=== PATIENT | female | born 1960 | race Caucasian/White ===

== ENCOUNTER → 2024-04-16 06:16 | Day surgery (SDC) | payer OTHER, SELFPAY | LOC: GI 06:16 | PROVIDERS: ATTENDING PHYSICIAN Internal Medicine | DX: Z12.11 Encounter for screening for malignant neoplasm of colon (principal); R19.5 Other fecal abnormalities; D12.3 Benign neoplasm of transverse colon; K62.1 Rectal polyp; K63.5 Polyp of colon | CPT/HCPCS: 45385; 45380; 88305 ==

== ENCOUNTER 2024-09-28 21:06 | Emergency (ER) | payer OTHER, SELFPAY ==
[2024-09-28 21:17] VITALS: BP 160/84
[2024-09-29 01:15] VITALS: BP 158/90
--- NOTE | 2024-09-29 02:40 | ED.GENMED ---
History of Present Illness
General
Chief Complaint: Musculo-Skeletal Complaint
Source: patient
Time Seen by Provider: 09/29/24 02:36
Nursing documentation reviewed up to this point in time: agreed with
History of Present Illness
History of Present Illness:
64-year-old female presents to the emergency department with left ankle swelling. She states that she fell down 2 steps. Denies head injury or loss of consciousness. She has been able to ambulate on it. Patient denies any pain in the knee or
hip. Denies medial pain. Pain only on the lateral aspect of her foot.
Past History
Past History
ED Past Medical History: None
ED Past Surgical History: None
Social History
Tobacco: Smoker
Review of Systems
Review of Systems
All Other Systems: ROS reviewed and negative except as documented in HPI and ROS
Constitutional: Reports no symptoms
EENT: Reports no symptoms
Respiratory: Reports no symptoms
Cardiac: Reports no symptoms
ABD/GI: Reports no symptoms
: Reports no symptoms
Musculoskeletal: Reports joint pain and joint swelling
Skin: Reports no symptoms
Neurological: Reports no symptoms
Endocrine: Reports no symptoms
Hematologic/Lymphatic: Reports no symptoms
Psychiatric: Reports anxiety
Phy Exam
General Physical Exam
General Presentation: well appearing and no apparent distress
General Skin: warm and dry
General Habitus: normal
General Mental: alert
General Hydration: appears well hydrated
Eye Exam
Eye Exam: PERRL, cornea clear and conjunctiva normal
Cardiovascular Exam
Cardiovascular Exam: regular rate/rhythm, no edema, no murmur and normal peripheral pulses
Pulmonary Exam
Pulmonary Exam: no respiratory distress and no cough
Gastrointestinal Exam
Gastrointestinal Exam: normal bowel sounds, non tender, soft, no organomegaly, no pulsatile mass and non distended
Neurological Exam
Neurological Exam: alert, oriented x3, no motor deficits and speech normal
Musculoskeletal Exam
Musculoskeletal Exam: full ROM and no edema
Skin Exam
Skin Exam: normal color, warm/dry, no rash and no petechia
Psychiatric Exam
Psychiatric Exam: normal mood/affect
Course
Orders/Labs/Results
Orders:
Orders
09/28/24 21:20
Ankle, left 3 view CR [CR Ankle - Left Min 3 Views ] Urgent
Comment:
Reason For Exam: fall down steps
09/29/24 02:47
Ortho Boot Left- Treatment ONCE
Short or tall?: Short
Vital Signs
Initial and Last Documented VS:
Initial Vital Signs
Temp Pulse Resp BP Pulse Ox
98.7 F 78 18 160/84 95
09/28/24 21:17 09/28/24 21:17 09/28/24 21:17 09/28/24 21:17 09/28/24 21:17
Last Documented Vital Signs
Temp Pulse Resp BP Pulse Ox
97.8 F 68 18 158/90 95
09/29/24 01:15 09/29/24 01:15 09/29/24 01:15 09/29/24 01:15 09/29/24 01:15
*Critical Care Note
Total Time (30-74mins, 75-104mins- exclusive of procedures): Not Applicable
ED Attending Note
-
Portions of this chart may have been created with voice recognition software.� Occasional wrong word or��sound alike� substitutions may have occurred due to the inherent limitations of voice recognition software.
Discharge Plan
Departure
Patient Disposition: Home (Routine Discharge)
Date of Disposition: 09/29/24
Time of Disposition: 02:47
Patient with high blood pressure during this ER visit?: Yes
Condition: Good
Discharge Problem:
Sprain of ankle
Instructions: Using Cold for Pain, Splint Care, Ankle sprain - ED discharge instructions, BLOOD PRESSURE
Prescriptions:
No Action
aspirin 81 MG tablet,delayed release (DR/EC)
81 mg PO DAILY
Referrals:
Krishna Bhatti MD [Active] - As needed
Activity Restrictions/Additional Instructions:
Tylenol or Motrin for pain
Thank You for choosing [facility].
It was a pleasure meeting you and taking part in your care. We hope for your continued healing and wellness.
Please read discharge instructions in their entirety. However, they are for general education and may not describe your exact diagnosis at discharge. Information on your ER visit and medical conditions were discussed with you along with appropriate
follow up information...
If indicated, please take your medications as instructed and indicated on discharge paperwork.
Please schedule a follow up appointment as directed. Call to schedule an appointment
Please return to the emergency department with ANY change in, persisting, or worsening of symptoms. If any of your symptoms do not improve, or persist, or become more severe within 6-12 hours, please return to the emergency department for further
care.
Please return to the emergency department if you develop a headache, neck pain/stiffness, fever greater than 100.4F, chest pain, shortness of breath, persistent nausea, vomiting, slurred speech, difficulty walking, numbness/tingling, weakness, signs
of infection or any other symptoms that are worrisome to you.
If you have any questions or concerns please do not hesitate to call the Hospital at or E-mail me directly at [email or web address]
Interventions
Interventions:
*Risk Screen - Suicide Last Done: 09/28/24 21:19
*General Assessment Last Done: 09/28/24 21:19
*Neglect/Abuse Screening Last Done: 09/28/24 21:19
*ED- Fall Risk Assessment Last Done: 09/29/24 02:24
*ED COVID-19 Vaccine History Last Done: 09/28/24 21:19
*Nursing Disposition Last Done: 09/29/24 03:04
ED-Musculoskeletal Assessment Last Done: 09/29/24 03:04
Discharge Date and Time
Discharge Date/Time: 09/29/24 03:13
Print Language: ARABIC
== END 2024-09-29 03:13 | disposition home or self-care (01) ==
LOC: EMR 21:06
PROVIDERS: EMERGENCY PHYSICIAN Student in an Organized Health Care Education/Training Program; FAMILY PHYSICIAN Physician Assistant
DX: S93.402A Sprain of unspecified ligament of left ankle, initial encounter (principal); W10.9XXA Fall (on) (from) unspecified stairs and steps, initial encounter; F17.200 Nicotine dependence, unspecified, uncomplicated
CPT/HCPCS: 99283; 73610

== ENCOUNTER → 2025-04-23 11:29 | Outpatient (REF) | payer OTHER, SELFPAY | LOC: RAD 11:29 | PROVIDERS: ATTENDING PHYSICIAN Physician Assistant | DX: Z85.850 Personal history of malignant neoplasm of thyroid (principal); E89.0 Postprocedural hypothyroidism | CPT/HCPCS: 76536 ==